=== PATIENT | male | born 1965 | race Caucasian/White ===

== ENCOUNTER → 2018-09-27 | Outpatient (CLI) | payer OTHER | LOC: M.ULTRA 07:52 | DX: K80.20 Calculus of gallbladder without cholecystitis without obstruction (principal); N28.89 Other specified disorders of kidney and ureter ==

== ENCOUNTER → 2018-10-24 | Day surgery (SDC) | payer OTHER ==
[~2018-10-24] MED LIST: ASPIR 8181 MG PO; LIPITOR 20 MG T20 M1 PO; VITAMIN E400 UNIT PO; VITAMINC500 PO
--- NOTE | ~2018-10-24 | OP ---
[facility] [address] [place] [address] OPERATIVE REPORT Name: CHARO TOLEDO Room: [facility]#: [id number] Admission: 10/24/18 Attend Phys: Colin Mcclure Discharge: Date of : 67 Report #: [id number] THIS REPORT FOR: //name// CC: Colin Michelle DATE OF SERVICE: 10/24/2018 PREOPERATIVE DIAGNOSIS: Chronic cholecystitis. POSTOPERATIVE DIAGNOSIS: Chronic cholecystitis. PROCEDURE: Laparoscopic cholecystectomy. SURGEON: Colin Mcclure MD ANESTHESIA: General. ESTIMATED BLOOD LOSS: Minimal. SPECIMEN: Gallbladder. DESCRIPTION OF PROCEDURE: After informed consent was obtained, the patient was brought to the operating room and placed supine. SCDs were placed and working, preoperative antibiotics were administered, general anesthesia was induced. The abdomen was prepped and draped in the usual sterile fashion. A 10 mm incision was made above the umbilicus. Fascia was incised and a trocar was placed. Pneumoperitoneum was established. Three right upper quadrant 5 mm ports were placed. Gallbladder was grasped at the fundus and retracted cephalad. Infundibulum was grasped and retracted laterally. I worked to dissect away the cystic duct and cystic artery. I fully dissected out the cystic plate. Cystic duct and artery were clipped and ligated leaving 2 clips on the remaining duct and one on the remaining artery. Gallbladder was then taken off the liver bed with electrocautery. It was placed into an Endopouch and removed. The fascia was then closed with a ypoxar-ba-aqpty 0 Vicryl. Skin was closed with 4-0 Monocryl. Incisions were sealed with Dermabond. COMPLICATIONS: None. DISPOSITION: The patient was taken to recovery in satisfactory condition. By: [id number] Mcclure MD /nt
--- NOTE | 2018-10-25 11:02 | EKG ---
[place] [address] ELECTROCARDIOGRAM REPORT Name: CHARO TOLEDO Room: [facility]#: [id number] Admission: 10/24/18 Attend Phys: Colin Mcclure Discharge: Date of : 67 Report #: [id number] THIS REPORT FOR: //name// [facility] Test Date: 2018-10-24 Test Time: 06:39:09 Pat Name: CHARO TOLEDO Department: Room: Gender: M Cement Mason Helper: ROBSON : 1965 Requested By: Colin Mcclure Order Number: [id number] Oksana MD: Robby Villagran Measurements Intervals [place] Rate: 48 P: 2 ND: 185 QRS: -11 QRSD: 109 T: 26 QT: 462 QTc: 413 Interpretive Statements Sinus bradycardia Low voltage, precordial leads No previous ECG available for comparison Electronically Signed On 10-25-2018 11:02:44 CDT by Robby Villagran [email or web address] <ELECTRONICALLY SIGNED> By: Robby Villagran MD, [facility] 10/25/18 1102 0639 0639 Robby Villagran MD, FACC /EPI
--- NOTE | 2018-10-26 02:06 | PATH ---
[address] [address] PATHOLOGY RPT PROCEDURE Name: HA MCCABE Room: [facility].#: [id number] Admission: 10/24/18 Date of : 67 Discharge: Report #: [id number] Path Case #: [id number] [facility] Accession Number: [id number] . 01 Material submitted: . gallbladder - GALLBLADDER . 01 Clinical history: . Chronic cholecystitis . 02 Diagnosis: "Gallbladder", cholecystectomy: - Chronic cholecystitis. (CLW/db; 10/25/2018) LBQ/10/25/2018 . 02 Electronically signed: . Janessa Sanchez MD, Pathologist NPI- [id number] . 01 Gross description: . The specimen is received in formalin, labeled "Ha Mccabe, gallbladder". Received is an intact gallbladder measuring 7.6 x 3.5 x 2.2 cm in greatest dimensions displaying a adipose covered serosal surface. Opening the specimen reveals a velvety, bile-stained mucosa with a gallbladder wall thickness of 0.1 cm. Calculi are not present, and no masses or lesions are noted grossly. [employer] sections, to include the proximal margin, are submitted in cassette A1. (CAA; 10/24/2018) QAC/QAC . 02 Pathologist provided ICD-10: K81.1 . 02 CPT . 414622 Specimen Comment: A courtesy copy of this report has been sent to Specimen Comment: [phone], . Specimen Comment: Report sent to and Performed at: 01 [facility] [address] [place] [address] [id number] MD Deacon Smith MD Phone: [phone] Performed at: 02 [facility] [address] [id number] MD Samuel Linares MD Phone: [phone]
== END | disposition home or self-care (01) ==
LOC: M.SUR 05:55
DX: K81.1 Chronic cholecystitis (principal); Z79.82 Long term (current) use of aspirin; Z79.899 Other long term (current) drug therapy

== ENCOUNTER → 2018-12-27 | Outpatient (CLI) | payer OTHER | LOC: M.ULTRA 14:30 | DX: N28.1 Cyst of kidney, acquired (principal); N28.89 Other specified disorders of kidney and ureter ==